=== PATIENT | male | born 1960 | race Caucasian/White ===

== ENCOUNTER 2017-02-01 07:18 | Day surgery (SDC) | payer BC ==
[~2017-02-01] VITALS: Ht 170.2 cm; Wt 113.4 kg
[2017-02-01] VITALS (8 sets, daily range): BP systolic 114–127; BP diastolic 58–67; PULSE 56; RESP 14–20; Ht 170.2 cm; Wt 113.4 kg
[2017-02-01] MEDS ORDERED: IBUPROFEN (08:07)
[2017-02-01] MEDS ORDERED: LOSARTAN (08:07)
[2017-02-01] MEDS ORDERED: CLONIDINE (08:07)
[2017-02-01] MEDS ORDERED: NEXIUM (08:07)
[2017-02-01] MEDS ORDERED: LIDOCAINE 4% SOLUTION 50 ML BTL ONE (09:10)
[2017-02-01] MEDS ORDERED: FENTAnyl 50 MCG/ML VIAL ONE (10:03)
[2017-02-01] MEDS ORDERED: MIDAZOLAM 1 MG/ML 2 ML INJ ONE ×2 (10:03)
--- NOTE | 2017-02-01 13:01 | GILP ---
DATE OF PROCEDURE: PROCEDURE PERFORMED: Esophagogastroduodenoscopy with biopsy and colonoscopy. INDICATION: A 56-year-old male undergoing this procedure for colon cancer screening and EGD for hea rtburn and dyspepsia. The risks of the procedure, related and unrelated complications, anesthetic, sedative risks, alternatives discussed, informed consent was obtained. DESCRIPTION OF PROCEDURE: The patient was brought to the GI lab, sedated with Versed and fentanyl. Total required 4 mg of Versed, 100 mg of fentanyl. After optimal sedation, scope was passed with m uch ease into esophagus. Z line was at 39 cm which was regular and normal. Stomach mucosa revealed gastritis. Duodenum, first and second part was within normal limits. Multiple biopsies obtained f rom the stomach to rule out H. pylori infection. Retroversion done, no growth was seen. Scope was straightened out and removed with good patient tolerance. IMPRESSION 1. Normal esophagus. 2. Normal Z-line. 3. Gastritis 4. Normal duodenum. PLAN: Review histopathology. COLONOSCOPY: The patient was turned around. The scope was passed with much ease into rectum, advan edi through sigmoid, descending, transverse colon all the way into cecum. IC valve and appendiceal orifice identified. Rest of the colon was normal. Clarity was good. Cleanliness was adequate to g ood. Scope was thus removed with good patient tolerance. IMPRESSION: 1. Normal findings all the way into cecum. 2. Clarity and cleanliness was good. PLAN: Stay on high fiber diet. Dictated By: ANAMIKA RECINOS/NTS Conf#: [id number] DID#: [id number] CC: Deidra Dewey MD;*EndCC*
== END 2017-02-01 12:22 | disposition home or self-care (01) ==
LOC: GIL 07:18
PROVIDERS: ATTEND Internal Medicine Gastroenterology
DX: Z12.11 Encounter for screening for malignant neoplasm of colon (principal); K29.30 Chronic superficial gastritis without bleeding; I10 Essential (primary) hypertension
CPT/HCPCS: 43239; 45378; 88305; 88312; J2250; J3010; Z7610